=== PATIENT | female | born 1980 | race Caucasian/White ===

== ENCOUNTER 2021-08-06 04:20 | Emergency (ER) | payer SELFPAY ==
[~2021-08-06] VITALS: Ht 165.1 cm; Wt 63.6 kg
[~2021-08-06 04:20] MED LIST: HYDR-3164 PO; SULF1TAB24 PO
--- NOTE | 2021-08-06 04:37 | PHYS DOC ---
Past Medical History Past Medical History: No Pertinent History Past Surgical History: Other Additional Past Surgical Histo: L. LEG Smoking Status: Current Every Day Smoker Alcohol Use: Occasionally Drug Use: Marijuana Social History Narrative: Previous IVDU (sober for 1.5 years) General Adult HPI: HPI: Patient is a 41 year old female who presents with low back pain radiating to the groins bilaterally, urinary urgency, urinary frequency, and chills. Symptoms ongoing for 2 days. Patient states it feels similar to when she has had a urinary tract infection in the past. States that this was a few months ago, when she grew out E. coli in her urine. She denies dysuria or hematuria. Denies vaginal discharge or bleeding. Is on Depo-Provera for control. Denies N/V, diarrhea. States that she has had frequent drenching sweats and chills. Review of Systems: Review of Systems: Constitutional: Denies fever or chills. [] Eyes: Denies change in visual acuity. [] HENT: Denies nasal congestion or sore throat. [] Respiratory: Denies cough or shortness of breath. [] Cardiovascular: Denies chest pain or edema. [] GI: Denies abdominal pain, nausea, vomiting, bloody stools or diarrhea. [] : Denies dysuria. Reports urinary urgency and frequency, and flank pain. [] Musculoskeletal: Denies back pain or joint pain. [] Integument: Denies rash. [] Neurologic: Denies headache, focal weakness or sensory changes. [] Endocrine: Denies polyuria or polydipsia. [] Lymphatic: Denies swollen glands. [] Psychiatric: Denies depression or anxiety. [] Heart Score: C/O Chest Pain: N/A Allergies: Allergies: Allergies Coded Allergies Type Severity Reaction Last Updated Verified No Known Drug Allergies 08/29/14 No Physical Exam: PE: Constitutional: Well developed, well nourished, no acute distress, non-toxic appearance. [] HENT: Normocephalic, atraumatic, bilateral external ears normal, oropharynx moist, no oral exudates, nose normal. [] Eyes: PERRLA, EOMI, conjunctiva normal, no discharge. [] Neck: Normal range of motion, no tenderness, supple, no stridor. [] Cardiovascular:Heart rate regular rhythm, no murmur [] Lungs & Thorax: Bilateral breath sounds clear to auscultation [] Abdomen: Mild lower abdominal tenderness to palpation in the suprapubic area. No guarding or rebound. Soft abdomen. Skin: Warm, dry, no erythema, no rash. [] Back: + CVA tenderness bilaterally. [] Extremities: No tenderness, no cyanosis, no clubbing, ROM intact, no edema. [] Neurologic: Alert and oriented X 3, normal motor function, normal sensory fun ction, no focal deficits noted. [] Psychologic: Affect normal, judgement normal, mood normal. [] EKG: EKG: [] Radiology/Procedures: Radiology/Procedures: [] Course & Med Decision Making: Course & Med Decision Making Pertinent Labs and Imaging studies reviewed. (See chart for details) Patient 41-year-old female who presents with 2 days of flank pain, urgency, frequency, and chills. On arrival is diaphoretic and slightly ill-appearing. 98.6 F. Mild tachycardia to the 110s, vitals otherwise normal. Has CVA ttp on exam bilaterally. Concern for pyelonephritis primarily. Blood cultures, lactic, ua, upreg, cbc, cmp ordered. NS bolus ordered. [id number] At this time much of the work-up is pending. Ceftriaxone ordered. Patient signed out 06 to my oncoming colleague with workup and disposition pending. Efrain Disclaimer: Efrain Disclaimer: This electronic medical record was generated, in whole or in part, using a voice recognition dictation system. Departure Departure Impression: Primary Impression: Bilateral flank pain Referrals: NO PCP (PCP) ZANDRA RODRIGUEZ MD Aug 06, 2021 04:37
[2021-08-06] MEDS ORDERED: IV NORMAL SALINE 1000ML BAG 1,000 ML IV ONE (04:45)
[2021-08-06] MEDS ORDERED: cefTRIAXone IV Push 1 GM VIAL. IVP ONE (05:30)
[2021-08-06 05:51] LABS: BASO % 0 % (0-3); EOS % 0 % (0-3); HEMATOCRIT 39.7 % (36.0-47.0); HEMOGLOBIN 13.5 g/dL (12.0-15.5); LYMPH # 0.8 x10^3/uL (1.0-4.8); LYMPH % 7 % (24-48); MEAN CORPUSCULAR HEMOGLOBIN 31 pg (25-35); MEAN CORPUSCULAR HGB CONC 34 g/dL (31-37); MEAN CORPUSCULAR VOLUME 90 fL (79-100); MONO % 9 % (0-9); NEUT % 84 % (31-73); PLATELET COUNT 326 x10^3/uL (140-400); RED BLOOD COUNT 4.39 x10^6/uL (3.50-5.40); WHITE BLOOD COUNT 11.8 x10^3/uL (4.0-11.0)
[2021-08-06 05:52] LABS: CALCIUM 8.6 mg/dL (8.5-10.1); CREATININE 0.8 mg/dL (0.6-1.0); GFR 78.7; POTASSIUM 3.5 mmol/L (3.5-5.1)
[2021-08-06 05:58] LABS: ALBUMIN/GLOBULIN RATIO 0.7 (1.0-1.7); TOTAL BILIRUBIN 0.4 mg/dL (0.2-1.0); TOTAL PROTEIN 7.4 g/dL (6.4-8.2)
[2021-08-06] MEDS ORDERED: fentaNYL PF VIAL 100 MCG/2 ML VIAL IVP ONE (06:30)
[2021-08-06] MEDS ORDERED: KETOROLAC 15 MG/ML VIAL. IVP ONE (06:30)
[2021-08-06 06:33] LABS: BILIRUBIN,URINE NEGATIVE (NEG); CLARITY,URINE CLOUDY; COLOR,URINE YELLOW; NITRITE,URINE POSITIVE (NEG); PROTEIN,URINE 100 mg/dL (NEG-TRACE); UROBILINOGEN,URINE 0.2 mg/dL (0.2 mg/dL)
[2021-08-06 06:51] LABS: BACTERIA,URINE MODERATE /HPF (0-FEW); RBC,URINE FIELD OBSCURED /HPF (0-2); WBC,URINE TNTC /HPF (0-4)
[2021-08-06] MEDS ORDERED: CIPR500T94 PO (07:12)
[2021-08-06] MEDS ORDERED: TRAM-48 PO (07:12)
[2021-08-06] MEDS ORDERED: ONDA4TAB7 PO (07:12)
--- NOTE | 2021-08-06 07:14 | PHYS DOC ---
Past Medical History Past Medical History: No Pertinent History Additional Past Medical Histor: COVID Past Surgical History: Other Additional Past Surgical Histo: L. LEG Smoking Status: Current Every Day Smoker Alcohol Use: Occasionally Drug Use: Marijuana Social History Narrative: Previous IVDU (sober for 1.5 years) General Adult EDM: Chief Complaint: FLANK PAIN HPI: HPI: Patient is a 41 year old female who presents to the ER with urinary symptoms and flank pain. She is afebrile but has had some rigors and subjective chills. She was initially seen by Dr. Duffy here in the ER this morning, and I accepted transfer of care to me at 0600 today. Urinalysis returns and urinary tract infection, positive for nitrites and too numerous to count white blood cells as well as bacteria. She has already received IV ceftriaxone. She has received IV fluids. I ordered IV Toradol and fentanyl for her. She is feeling much better. She understands that her urine culture is currently pending, and should there be any indication to change antibiotics based on this, she should be notified. I have strongly encouraged her to follow-up with a primary care physician, as she has apparently had another urinary tract infection within the last month or so. I encouraged her to complete full course of antibiotics. She has done well with fluoroquinolone antibiotics in the past, and I informed her of the risks associated with this including tendinopathy. She feels very comfortable going home with outpatient treatment and follow-up. Strict return precautions are given. She has verbalized understanding of information provided. Heart Score: C/O Chest Pain: No Risk Factors: Risk Factors: DM, Current or recent (<one month) smoker, HTN, HLP, family history of CAD, obesity. Risk Scores: Score 0 - 3: 2.5% MACE over next 6 weeks - Discharge Home Score 4 - 6: 20.3% MACE over next 6 weeks - Admit for Clinical Observation Score 7 - 10: 72.7% MACE over next 6 weeks - Early Invasive Strategies Current Medications: Current Medications Medications (Trade) Dose Ordered Sig/Gre Start Time Stop Time Status Last Admin Dose Admin Ceftriaxone Sodium (Rocephin) 1 gm 1X ONCE 08/06/21 05:30 08/06/21 05:31 DC 08/06/21 06:04 1 GM Fentanyl Citrate (Fentanyl 2ml Vial) 50 mcg 1X ONCE 08/06/21 06:30 08/06/21 06:31 DC 08/06/21 06:45 50 MCG Ketorolac Tromethamine (Toradol 15mg Vial) 15 mg 1X ONCE 08/06/21 06:30 08/06/21 06:31 DC 08/06/21 06:45 15 MG Sodium Chloride 1,000 ml @ 1,000 mls/hr 1X ONCE 08/06/21 04:45 08/06/21 05:44 DC 08/06/21 04:45 1,000 MLS/HR Allergies: Allergies: Allergies Coded Allergies Type Severity Reaction Last Updated Verified morphine Allergy Unknown 08/06/21 Yes Physical Exam: PE: Constitutional: Well developed, well nourished, no acute distress, non-toxic appearance. She is currently resting comfortably. HENT: Normocephalic, atraumatic, mucous membranes are moist. Eyes: Sclera nonicteric Cardiovascular: Well-perfused appearing. Lungs & Thorax: Respirations are nonlabored. Skin:, Warm, dry, intact. Neurologic: Awake, alert, interactive, ambulatory with a steady gait. Psychologic: Affect normal, judgement normal, mood normal. [] Current Patient Data: Labs: Laboratory Tests Test 08/06/21 05:19 08/06/21 05:56 08/06/21 05:57 White Blood Count 11.8 x10^3/uL (4.0-11.0) H Red Blood Count 4.39 x10^6/uL (3.50-5.40) Hemoglobin 13.5 g/dL (12.0-15.5) Hematocrit 39.7 % (36.0-47.0) Mean Corpuscular Volume 90 fL (79-100) Mean Corpuscular Hemoglobin 31 pg (25-35) Mean Corpuscular Hemoglobin Concent 34 g/dL (31-37) Red Cell Distribution Width 13.0 % (11.5-14.5) Platelet Count 326 x10^3/uL (140-400) Neutrophils (%) (Auto) 84 % (31-73) H Lymphocytes (%) (Auto) 7 % (24-48) L Monocytes (%) (Auto) 9 % (0-9) Eosinophils (%) (Auto) 0 % (0-3) Basophils (%) (Auto) 0 % (0-3) Neutrophils # (Auto) 10.0 x10^3/uL (1.8-7.7) H Lymphocytes # (Auto) 0.8 x10^3/uL (1.0-4.8) L Monocytes # (Auto) 1.0 x10^3/uL (0.0-1.1) Eosinophils # (Auto) 0.0 x10^3/uL (0.0-0.7) Basophils # (Auto) 0.0 x10^3/uL (0.0-0.2) Sodium Level 135 mmol/L (136-145) L Potassium Level 3.5 mmol/L (3.5-5.1) Chloride Level 101 mmol/L (98-107) Carbon Dioxide Level 24 mmol/L (21-32) Anion Gap 10 (6-14) Blood Urea Nitrogen 9 mg/dL (7-20) Creatinine 0.8 mg/dL (0.6-1.0) Estimated GFR (Cockcroft-Gault) 78.7 BUN/Creatinine Ratio 11 (6-20) Glucose Level 104 mg/dL (70-99) H Lactic Acid Level 0.7 mmol/L (0.4-2.0) Calcium Level 8.6 mg/dL (8.5-10.1) Total Bilirubin 0.4 mg/dL (0.2-1.0) Aspartate Amino Transferase (AST) 13 U/L (15-37) L Alanine Aminotransferase (ALT) 18 U/L (14-59) Alkaline Phosphatase 62 U/L (46-116) Total Protein 7.4 g/dL (6.4-8.2) Albumin 3.0 g/dL (3.4-5.0) L Albumin/Globulin Ratio 0.7 (1.0-1.7) L Lipase 69 U/L (73-393) L Urine Collection Type Void Urine Color Yellow Urine Clarity Cloudy Urine pH 6.0 (<5.0-8.0) Urine Specific [place] 1.010 (1.000-1.030) Urine Protein 100 mg/dL (NEG-TRACE) Urine Glucose (UA) Negative mg/dL (NEG) Urine Ketones (Stick) Negative mg/dL (NEG) Urine Blood Moderate (NEG) Urine Nitrite Positive (NEG) Urine Bilirubin Negative (NEG) Urine Urobilinogen Dipstick 0.2 mg/dL (0.2 mg/dL) Urine Leukocyte Esterase Large (NEG) Urine RBC Field obscured /HPF (0-2) Urine WBC Tntc /HPF (0-4) Urine Bacteria Moderate /HPF (0-FEW) POC Urine HCG, Qualitative Hcg negative (Negative) Laboratory Tests 08/06/21 05:19 Laboratory Tests 08/06/21 05:19 Vital Signs: Vital Signs Date Time Temp Pulse Resp B/P (MAP) Pulse Ox O2 Delivery O2 Flow Rate FiO2 08/06/21 06:45 17 100 Room Air 08/06/21 04:21 98.6 108 121/62 (81) 98.6 EKG: EKG: [] Radiology/Procedures: Radiology/Procedures: [] Course & Med Decision Making: Course & Med Decision Making Pertinent Labs and Imaging studies reviewed. (See chart for details) The patient has been empirically treated with IV ceftriaxone for pyelonephritis. Urinalysis demonstrates UTI. She is resting comfortably and reports feeling much better. Vital signs are currently stable. I have discussed all of the findings, differential diagnosis and plan of care with her. She feels very comfortable going home, declines admission. No indication for emergent admission at this time, no indication for emergent imaging, as findings are most consistent with acute pyelonephritis. I have discussed strict return precautions with her, including return for more severe pain, persistent fevers after 48 hours of antibiotics, uncontrolled vomiting, dehydration, inability to tolerate p.o. meds and fluids, weakness or any other concerns. I instructed her to follow-up with a primary care physician. She verbalizes understanding of instructions given. Efrain Disclaimer: Efrain Disclaimer: This electronic medical record was generated, in whole or in part, using a voice recognition dictation system. Departure Departure Impression: Primary Impression: Bilateral flank pain Additional Impression: Acute pyelonephritis Disposition: HOME / SELF CARE / HOMELESS Condition: STABLE Referrals: NO PCP (PCP) Patient Instructions: Pyelonephritis, Adult Additional Instructions: Take the full course of antibiotics. Use the pain and nausea medicine only as needed. Stay well-hydrated. Return immediately for uncontrolled vomiting, dehydration, more severe uncontrolled pain, weakness or any other concerns. Your urine culture is pending, and you should be notified of any need to change your antibiotics based on this culture result. Please follow-up with a primary care physician for further evaluation, care and routine treatment. Scripts Tramadol Hcl (ULTRAM) 50 Mg Tablet 50 MG PO Q6HRS PRN for PAIN, #12 TAB 0 Refills Prov: JOSE DE JESUS SOLER DO 08/06/21 Ondansetron Hcl (ZOFRAN) 4 Mg Tablet 1 TAB PO Q6HRS for nausea and vomiting, #20 TAB Prov: JOSE DE JESUS SOLER DO 08/06/21 Ciprofloxacin Hcl (CIPRO) 500 Mg Tablet 1 TAB PO BID for 10 Days, #20 TAB 0 Refills Prov: JOSE DE JESUS SOLER DO 08/06/21 JOSE DE JESUS SOLER DO Aug 06, 2021 07:14
[2021-08-06 07:32] VITALS: BP 114/65
== END 2021-08-06 07:33 | disposition home or self-care (01) ==
LOC: ER 04:20
DX: N10 Acute pyelonephritis (principal); F17.200 Nicotine dependence, unspecified, uncomplicated; Z88.5 Allergy status to narcotic agent
CPT/HCPCS: 36415; 80053; 81001; 81025; 83605; 83690; 85025; 87086; 96361; 96374; 96375; 99284; J0696; J1885; J3010; J7030